=== PATIENT | male | born 1940 | race Caucasian/White ===

== ENCOUNTER 2018-10-18 09:56 | Observation (INO) | payer MEDICARE, BC, SELFPAY ==
[2018-10-18] VITALS (104 sets, daily range): BP systolic 98–164; BP diastolic 59–90; PULSE 62–101; RESP 11–31; TEMP 36.6–37; O2SAT 93–98
--- NOTE | 2018-10-18 10:40 | DI.CT_ITS ---
SYMPTOMS/DIAGNOSIS: DIZZINESS NONCONTRAST HEAD CT: There is mild to moderate atrophy. There are white matter changes consistent with small vessel disease. The ventricles are normal in size. No acute infarct, hemorrhage or mass is seen. There is no evidence of skull fracture. There is minimal sinus disease. IMPRESSION: No acute abnormality.
--- NOTE | 2018-10-18 10:40 | W.ED.GENAD ---
Discharge Plan Disposition Patient Disposition: [facility] INPATIENT Condition: Stable Discharge Details Chief Complaint: Dizzy/Sync Clinical Impression: Benign paroxysmal positional vertigo of right ear, Elevated troponin I level Admit Date/Time: 10/18/18 16:00 Admit Provider: Oskar Farfan Attending Provider: Oskar Farfan Primary Care Provider: Zoie Hyman ED Provider: Trent Mendosa [facility] Hospital Course: Chief Complaint: Vertigo HPI: Very pleasant 78 year old man with a prior history of HTN and dyslipidemia, being admitted from [facility] Emergency Department with findings of elevated BNP and troponin. Mr. Pope has a past Medical History significant for HTN, dyslipidemia, Depression, and mild Dementia. He is a full-time [place] resident, here locally to visit his daughter and grandchildren. The patient reported intermittent 'dizziness', initially attibuting this to his allergies since coming to [place] last month. He described this dizziness as sensation of the environment spinning around him - this does not appear to have a precipitating factor. He reportedly had an episode 2 days prior to admission while golfing, leading to an ED visit at [facility], where his work-up was essentially benign (troponin of 0.05). Since his discharge he reported 2 further episodes on the day prior to his presentation here, and 2 more occuring on the day of admission, the last of which was [place] and led to his presentation to the ED. According to the Emergency Department provider his Elton-Hallpike was positive, and the patient's symptoms improved after stone reposition maneuvering. However, routine labs returned with a troponin of 0.2, rechecked at 0.22, a BNP of 4715, and a DDimer of 784. Subsequent EKG was non-ischemic, CT head negative, and CT of the chest showed bibasilar infiltrates vs. atelectasis. He was referred for admission for further evaluation and treatment. Following admission the patient's symptoms of vertigo were reproduced by Physical Therapy while performing the Elton-Hallpike Maneuver, and he had the Sandeep Maneuver performed twice and now remains asymptomatic. MRI of the brain was negative for any acute pathology. His ECHO however returned with a mild decreased in ejection fraction and note of abnormal wall motion, and Nuclear stress was interpreted as positive for a small area of paritally reversible defect. The patient's troponin has remained minimally elevated but flat, again unchanged this morning at 0.2, and he remains completely asymptomatic. Mr. Pope has no complaints this morning. No other events reported. Hospital Course: (1) Elevated troponin: Minimally elevated troponin, asymptomatic, and without acute ECG changes. Troponin remained at 0.2 - 0.22 between the afternoon of 10/18 and morning of 10/20. As BNP was elevated an ECHO was obtained confirming a new diagnosis of CHF with wall motion abnormality (moderate hypokinesis of the apical myocardium), and Stress suggested small area of ischemia in the distribution of the RCA. Although doubt acute ACS, patient may have had silent MS in the past. Neither Mr. Pope nor his recall any time during which he may have had any symptoms of Chest pressure or discomfort, palpitations, heart burn, Upper Extremity/neck pain, nausea, vomiting, dyspnea, or diaphoresis. She reports that he has felt more 'fatigue' over the last 1-2 years, and attributes this to his underlying dementia. - For now continue aspirin, initiated low dose BB, and prn NTG (although asymptomatic). Pravastatin was changed to Atorvastatin. Already on BRAULIO-I as a home medication. Discussed case in detail with cardiology - given findings recommendations are for diagnostic catheterization, and given that patient is asymptomatic and this was likely not an acute event advised for elective outpatient procedure. Discussed with in detail, with plans for follow-up at [facility] urgent cardiology clinic, for evaluation of a diagnostic and potentially therapeutic Heart Catheterization. (2) Vertigo: Reported + Elton-Hallpike by ED evaluation, with improvement following stone repositioning maneuvers. - CT Head / MRI brain negative. - Remains asymptomatic. (3) Abnormal CT scan, chest: Evidence of small basilar infiltrates vs. atelectasis, with small pleural and pericardial effusions. - No evidence of cough or dyspnea, lack of leukocytosis, no fever, and Procalcitonin <0.1. Doubt infectious - hold off antibiotic therapy. (4) Hypertension: Continue combination BRAULIO-I/Thiazide, and initiated low dose BB. SBP mostly in the 120-140's, with HR 60-70's. (5) Dyslipidemia: Continue Atorvastatin and hold Pravastatin. (6) Alzheimer's dementia: Reported mild dementia - although patient is oriented X3 at time of admission. Continue Donepezil. (7) DVT prophylaxis: Was maintained on SC Lovenox. Discharge Instructions Instructions: Heart Failure (DC), Heart Failure (GEN), Benign Paroxysmal Positional Vertigo (DC), Benign Paroxysmal Positional Vertigo (GEN) Forms: Nursing Discharge Form Discharge Data Discharge Date/Time-TO BE ENTERED AT DEPARTURE: 10/18/18 17:23 Medical Decision Making Patient presenting to the emergency department for chief complaint of dizziness. Patient and significant other states that this is been intermittent since August when they came up here and noted that his allergies have increased since visiting daughter and that they typically live in [place]. Patient does state that this is similar nature to previous episodes but on Friday he did have an episode where he got dizzy and fell and was seen and evaluated at [facility] emergency department. Patient stated he had a negative work-up with mild troponin of 0.05. Patient denies any headache, chest pain, shortness of breath, focal neurological deficits. Physical exam shows normal cranial nerve exam, patient does have nystagmus with right lateral gaze and positive [place]-Hallpike to the right. Sandeep maneuver was performed immediately after [place]-Hallpike which did seem to help patient's symptoms. After performing this patient only had one episode of dizziness. Cardiac and respiratory exam are otherwise unremarkable. Given that patient had a syncopal event plan to check labs and EKG. Pending results patient was given Zofran, meclizine, and IV fluids. Initial EKG reviewed by attending physician and myself and shows rate of 80, sinus rhythm, no STEMI, otherwise nondiagnostic EKG. Review of labs show nondiagnostic CBC and CMP, elevated troponin of 0.2, nondiagnostic urine. Patient reassessed and states resolution of dizziness symptoms, no chest pain, no shortness of breath, is otherwise asymptomatic and feeling well. Review of [facility] records does show normal sinus rhythm EKG otherwise nondiagnostic with troponin of 0.05. Given this elevation of troponin I do feel that patient should stay for secondary troponin. Patient is agreeable to waiting 3 hours. Review of second troponin shows elevation of 0.22. Patient continues to remain asymptomatic and second EKG was done and reviewed with attending physician that shows a sinus rhythm, rate of 77, no STEMI, again nondiagnostic EKG. Plan to consult with [facility] cardiology but I feel that patient given he is asymptomatic is appropriate to stay at our facility if beds available or continued trending of troponin, monitoring of symptoms, and stress and echo when available. Pending speaking to [facility] d-dimer and BNP was ordered. Spoke with [facility] back end engineer who did not disagree with my plan to have patient admitted to our facility and to do further testing of stress and echo. Reviewed d-dimer which was slightly elevated for age adjustment and BNP which is also elevated. Given this I did talk to patient about CT imaging of the chest for rule out of PE which he is agreeable to. Patient again remains asymptomatic. Pending CT results I did consult with hospitalist Dr. Adolph collins for consideration of admission, further monitoring and further testing. After discussion of patient's case and presentation with him he agreed for admission and stated he would place admission order. Pending patient being admitted to hospital inpatient services review of CT imaging shows no PE, atelectasis versus bilateral pulmonary infiltrates, and small pericardial effusion. I do not feel that pericardial effusion needs any interventions at this time, I doubt infectious infiltrates given that patient has no cough, asymptomatic, afebrile. HPI General Mode of arrival: ambulatory. Date/Time Provider Initiated Documentation: 10/18/18 10:12. Limitations to Documentation: no limitations. Information obtained by: patient, family and RN notes reviewed. History of Present Illness 78 year old M presents to the emergency department with the chief complaint of Dizziness, described as moderate, Quality is described as other (Denies pain or discomfort), Patient started experiencing this month(s) (3) and it has been intermittent. No relieving factors improve symptom(s), No exacerbating factors reported . Patient notes no other symptoms.. Patient did receive the following treatments prior to arrival, none Related Data Home Medications Medication Instructions Recorded Confirmed aspirin [Aspir-81] 81 mg PO DAILY 10/18/18 10/18/18 citalopram 10 mg PO DAILY 10/18/18 10/18/18 donepezil 5 mg PO DAILY 10/18/18 10/18/18 lisinopril-hydrochlorothiazide 1 tab PO DAILY 10/18/18 10/18/18 loratadine 10 mg PO HS 10/18/18 10/18/18 multivitamin 1 cap PO DAILY 10/18/18 10/18/18 atorvastatin [Lipitor] 40 mg PO QPM #30 tab 10/20/18 metoprolol tartrate 25 mg PO BID #60 tab 10/20/18 nitroglycerin [Nitrostat] 0.4 mg SUBLINGUAL Q5 MIN PRN X3 10/20/18 PRN #9 tab Previous Rx's Medication Instructions Recorded atorvastatin [Lipitor] 40 mg PO QPM #30 tab 10/20/18 metoprolol tartrate 25 mg PO BID #60 tab 10/20/18 nitroglycerin [Nitrostat] 0.4 mg SUBLINGUAL Q5 MIN PRN X3 10/20/18 PRN #9 tab Allergies Allergy/AdvReac Type Severity Reaction Status Date / Time No Known Allergies Allergy Unverified 10/18/18 10:09 General Stated Complaint: Dizzy/Sync BRENNA: 3 Review of Systems Constitutional Denies fever(s) and Denies headache(s) Eyes Denies change in vision ENT Reports vertigo, Reports dizziness, Denies otalgia and Denies headache(s) Cardiovascular Denies chest pain, Denies syncope and Denies dyspnea Respiratory Denies dyspnea Gastrointestinal Denies nausea and Denies vomiting Neurologic Reports as per HPI, Reports vertigo, Reports dizziness, Denies syncope, Denies headache(s) and Denies sensory deficit PFS Medical History Alzheimer's dementia (Chronic) Depression (Chronic) Dyslipidemia (Acute) Hypertension (Chronic) Social History Smoking/Tobacco Use Status: Never Alcohol Intake: current Alcohol Intake frequency: holidays/special occasions only Drug use: Never Substance use type: does not use Do you feel safe at home: Yes Additional Social history: Patient is a . He is with children. No history of EtOH or Tobacco use. Exam Const General: cooperative, healthy appearing, no acute distress and well groomed Orientation: alert, awake and oriented x3 HENMT Head: normal to inspection Ears: hearing grossly normal bilaterally and TM's normal bilaterally Mouth: oral mucosae normal and moist mucous membranes Throat: posterior oropharynx normal Eyes Visual Snow: normal visual snow by confrontation Alignment and Position: alignment normal Periorbital: periorbital findings normal Eyelids: eyelids normal Conjunctivae: conjunctivae normal Pupils: PERRL EOM: EOM intact bilaterally and nystagmus (Horizontal with right lateral gaze) Neck Neck: normal visual inspection, full ROM, no lymphadenopathy and no meningeal signs Resp Effort & Inspection: normal respiratory effort and able to speak in complete sentences Auscultation: clear to auscultation bilaterally Cardio Rate: regular rate Rhythm: regular rhythm Heart Sounds: S1 normal and S2 normal Neuro General: alert, awake, oriented x3, gait normal, tone normal, moves all extremities, CN's II-XI intact bilaterally, not confused, [place] Hallpike (Positive to the right) and other (Hints exam showing nystagmus right lateral gaze, no signs of central CVA) Cranial Nerves: nystagmus (Horizontal with right lateral gaze) Cognition: normal cognition Speech: speech normal Motor: muscle tone normal throughout, strength 5/5 throughout, no pronator drift, no movement abnormalities noted and no fasciculations Sensory Exam: no sensory deficits noted Course Vital Signs Temperature 37.0 C 10/18/18 10:04 Pulse 85 10/18/18 10:04 Respiratory Rate 18 10/18/18 10:04 Blood Pressure 162/75 H 10/18/18 10:04 Pulse Oximetry 97 10/18/18 10:04 Temperature 37.0 C 10/18/18 10:04 Temperature Source Skin 10/18/18 10:04 Pulse 85 10/18/18 10:04 Respiratory Rate 18 10/18/18 10:04 Respiratory Effort Non-Labored 10/18/18 10:13 Blood Pressure 162/75 H 10/18/18 10:04 Blood Pressure Position Supine 10/18/18 10:04 Pulse Oximetry 97 10/18/18 10:04 Oxygen Delivery Method Room Air 10/18/18 10:04 Oxygen Flow Rate 0 10/18/18 10:04 Pain Level 0 10/18/18 10:04
[2018-10-18] MEDS: Meclizine 25 MG TAB PO (10:53)
[2018-10-18] MEDS: Normal Saline 1,000 ML 1000 ML IV (10:53)
[2018-10-18 11:15] LABS: Abs Immature Grans 0.02 k/cumm (0.0-0.09); Absolute Basophil Count 0.03 k/cumm (0.0-0.2); Absolute Eosinophil Count 0.27 k/cumm (0.0-0.7); Absolute Lymphocyte Count 1.17 k/cumm (1.2-3.4); Absolute Monocyte Count 0.82 k/cumm (0.11-0.7); Absolute Neutrophil Count 7.43 k/cumm (1.2-6.7); Basophils % 0.3; Eosinophils % 2.8; HCT 45.2 % (40.0-50.0); HGB 15.3 g/dL (13.5-17.5); Immature Grans % 0.2; Mean Corp. HGB Concentration 33.8 g/dL (32.0-36.0); Mean Corpuscular Hemoglobin 30.6 pg (27.0-33.0); Mean Corpuscular Volume 90.4 fL (80-95); Mean Platelet Volume 11.6 fL (8.0-11.0); Monocytes % 8.4; Neutrophils % 76.3; Platelet Count 175 x1000/uL (130-400); RBC Distribution Width 13.2 % (11.8-14.1); White Blood Cell Count 9.74 k/cumm (4.4-10.8)
[2018-10-18 11:16] LABS: Bilirubin Negative (Negative); Blood Negative (Negative); Clarity Clear (Clear); Glucose Negative (Negative); Ketones Negative (Negative); Leukocyte Esterase Negative (Negative); Nitrite Negative (Negative); Specific Gravity 1.015 (1.005-1.025); Urobilinogen 0.2 EU/dL (Up TO 0.2); pH 7.5 (5-8)
[2018-10-18 11:40] LABS: ALT 25 U/L (12-78); AST 21 U/L (15-37); Albumin 3.1 g/dL (3.4-5.0); Alkaline Phosphatase 76 U/L (46-116); Anion Gap 10.3 mmol/L (3-11); BUN 13 mg/dL (7-18); Bilirubin, Total 0.6 mg/dL (0.2-1.0); CO2 26.7 mmol/L (21.0-32.0); CREATININE 0.96 mg/dL (0.70-1.30); Calcium 8.8 mg/dL (8.5-10.1); Chloride 105 mmol/L (98-107); Glucose 98 mg/dL (70-100); Potassium 3.9 mmol/L (3.5-5.1); Sodium 142 mmol/L (136-145); Total Protein 6.7 g/dL (6.4-8.2)
--- NOTE | 2018-10-18 11:53 | DI.VRAD_ITS ---
EXAM: CT Head Without Contrast EXAM DATE/TIME: 10/18/2018 10:41 AM CLINICAL HISTORY: 78 years old, male; Dizziness TECHNIQUE: Imaging protocol: Computed tomography images of the head without contrast. Coronal and sagittal reformatted images were created and reviewed. Radiation optimization: All CT scans at this facility use at least one of these dose optimization techniques: automated exposure control; mA and/or kV adjustment per patient size (includes targeted exams where dose is matched to clinical indication); or iterative reconstruction. COMPARISON: No relevant prior studies available. FINDINGS: Brain: Mild small vessel ischemic white matter changes of aging. No evidence for acute infarct or stroke. Ventricles: Unremarkable. No ventriculomegaly. Bones/joints: Unremarkable. No acute fracture. Sinuses: Visualized sinuses are unremarkable. No fluid levels. Mastoid air cells: Visualized mastoid air cells are well aerated. No mastoid effusion. Soft tissues: Unremarkable. IMPRESSION: 1. Small vessel ischemic white matter changes of aging. 2. No evidence for acute intracranial abnormality. Dictated and Authenticated by: Diandra Arteaga MD. Ordering:AME Newman MD
[2018-10-18 14:21] LABS: Troponin I 0.22 ng/mL (0.00-0.06)
[2018-10-18 15:04] LABS: NT-proBNP 4715 pg/mL
[2018-10-18 15:14] LABS: D-Dimer 784 ng/mlFEU (<500)
[2018-10-18] MEDS: Normal Saline Flush 10 ML SYR IVP (15:40)
[2018-10-18] MEDS: Omnipaque 350 MG/ML 100 ML BTL IJ (15:40)
--- NOTE | 2018-10-18 15:40 | DI.CT_ITS ---
SYMPTOMS/DIAGNOSIS: ELEVATED D-DIMER CHEST CT FOR PULMONARY EMBOLISM: CT angiography was performed with multi slice acquisition and multi planar and 3D reconstruction. There is no evidence of pulmonary emboli or aortic dissection. There is bibasilar atelectasis versus infiltrates. There are tiny bilateral pleural effusions and a small pericardial effusion. There are mildly enlarged hilar and mediastinal lymph nodes. IMPRESSION: No evidence of pulmonary emboli. Question of small basilar infiltrates versus atelectasis. Small pleural and pericardial effusions.
--- NOTE | 2018-10-18 15:57 | DI.VRAD_ITS ---
EXAM: CT Angiography Chest With Contrast EXAM DATE/TIME: 10/18/2018 3:20 PM CLINICAL HISTORY: 78 years old, male; Other: Elevated d-dimer; Patient HX: No chest pain or SOB, no HX of clots. TECHNIQUE: Imaging protocol: Axial computed tomographic angiography images of the chest with intravenous contrast using CT angiography protocol. Coronal and sagittal reformatted images were created and reviewed. 3D rendering: MIP reconstructed images were created and reviewed. Radiation optimization: All CT scans at this facility use at least one of these dose optimization techniques: automated exposure control; mA and/or kV adjustment per patient size (includes targeted exams where dose is matched to clinical indication); or iterative reconstruction. Contrast material: OMNIPAQUE 350;Contrast volume: 75 ml;Contrast route: IV; COMPARISON: No relevant prior studies available. FINDINGS: Pulmonary arteries: No evidence for pulmonary embolus. Aorta: Atherosclerotic disease. Lungs: Bibasilar infiltrates versus atelectasis. Pleural space: Biapical pleural thickening. Bibasilar pleural thickening. Tiny bilateral pleural effusions. Heart: Tiny pericardial effusion. Coronary artery disease. Mediastinum: Hiatal hernia. Liver: Hypodensity in the anterior liver may represent a small cyst. Spleen: Calcified granulomas in the spleen. Lymph nodes: Mediastinal and hilar lymph nodes. Calcified mediastinal and right hilar lymph nodes. Bones/joints: Multilevel degenerative changes spine. Soft tissues: Unremarkable. IMPRESSION: 1. No evidence for pulmonary embolus. 2. Bibasilar infiltrates versus atelectasis. Tiny bilateral pleural effusions. 3. Pericardial effusion. Dictated and Authenticated by: Diandra Arteaga MD. Ordering:AME Newman MD
--- NOTE | 2018-10-18 17:40 | HPE_ITS ---
Date of service: 10/18/18 Time of Service: 17:40 Assessment and Plan (1) Elevated troponin: Current visit: Yes Status: Acute Unsure of etiology, but appears minimally and equivocally elevated, and appears asymptomatic. - EKG non-ischemic. - Elevated BNP - Check ECHO. - Plan on Nuclear Stress tomorrow if able. - Monitor on telemetry, and rule out with serial cardiac biomarkers. - Given elevated DDimer and recent lengthy travel CT of the chest obtained and ruled out PE. - For now continue aspirin, initiate high potency statin, low dose BB, and prn NTG (although asymptomatic). Hold off on anticoagulation unless troponins begin to increase. (2) Vertigo: Current visit: Yes Status: Acute Reported + Clio-Hallpike by ED evaluation, with improvement following stone repositioning maneuvers. Patient does report, however, continued vertigo earlier when standing and attempting to urinate. - Consult PT for reevaluation. - CT Head negative, but cannot definitively rule out Posterior Circulation CVA - check MRI/MRA brain. - Ensure ambulation with assistance while hospitalized. (3) Abnormal CT scan, chest: Current visit: Yes Status: Acute (4) Hypertension: Current visit: Yes Status: Chronic Continue combination BRAULIO-I/Thiazide, and initiated low dose BB. (5) Dyslipidemia: Current visit: Yes Status: Acute Start Atorvastatin and hold Pravastatin. (6) Alzheimer's dementia: Current visit: Yes Status: Chronic Reported mild dementia - although patient is oriented X3 at time of admission. Continue Donepezil. (7) DVT prophylaxis: Current visit: Yes Status: Acute SC Lovenox. History of Present Illness Chief Complaint: Vertigo, Elevated Troponin Narrative: Very pleasant 78 year old man with a prior history of HTN and dyslipidemia, being admitted from [facility] Emergency Department with findings of elevated BNP and troponin. Mr. Pope has a past Medical History significant for HTN, dyslipidemia, Depression, and mild Dementia. He is a full-time [place] resident, here locally to visit his daughter and grandchildren. The patient reports intermittent 'dizziness', initially attibuting this to his allergies since coming to [place] last month. He describes this dizziness as sensation of the environment spinning around him - this does not appear to have a positional component or any precipitating factor. He reportedly had an episode 2 days ago while golfing, leading to an ED visit at [facility], where his only abnormality was a troponin of 0.05. Since his discharge he reported 2 further episodes yesterday, and 2 more occuring today, the last of which was at [employer] and led to his presentation to the ED. According to ED notes his Elton-Hallpike was positive, and the patient's symptoms improved after stone reposition maneuvering. However, routine labs returned with a troponin of 0.2, rechecked at 0.22, a BNP of 4715, and a DDimer of 784. Subsequent EKG was non-ischemic, CT head negative, and CT of the chest showed bibasilar infiltrates vs. atelectasis. He was referred for admission for further evaluation and treatment. Review of Systems Review of Systems All systems reviewed & are unremarkable except as noted in HPI and below [facility] Medical History (Updated 10/18/18 @ 17:53 by Oskar Farfan MD) Alzheimer's dementia (Chronic) Depression (Chronic) Dyslipidemia (Acute) Hypertension (Chronic) Social History (Updated 10/18/18 @ 17:54 by Oskar Farfan MD) Smoking/Tobacco Use Status: Never Alcohol Intake: current Alcohol Intake frequency: holidays/special occasions only Drug use: Never Substance use type: does not use Do you feel safe at home: Yes Additional Social history: Patient is a . He is with children. No history of EtOH or Tobacco use. Meds Home Medications Medication Instructions Recorded Confirmed Type aspirin [Aspir-81] 81 mg PO DAILY 10/18/18 10/18/18 History citalopram 5 mg PO DAILY 10/18/18 10/18/18 History donepezil 5 mg 10/18/18 History lisinopril-hydrochlorothiazide 1 tab PO DAILY 10/18/18 10/18/18 History pravastatin 20 mg PO DAILY 10/18/18 10/18/18 History Allergies Allergy/AdvReac Type Severity Reaction Status Date / Time No Known Allergies Allergy Unverified 10/18/18 10:09 Exam Narrative Exam Narrative: General: Patient appears comfortable, AAOX3 at time of exam, NAD Neck: Supple CV: Regular, nontachycardic, S1S2, No rubs, murmurs, or gallops. Pulmonary: Clear to auscultation bilaterally, no crackles, wheezing, or rhonchi Abdomen: + Bowel Sounds, soft, nontender, nondistended Vascular: No lower extremity edema Psych: Normal mood and affect. Results Imaging CT scan - chest: report reviewed and image reviewed Additional studies: Exam(s) EXAM: CT Head Without Contrast EXAM DATE/TIME: 10/18/2018 10:41 AM CLINICAL HISTORY: 78 years old, male; Dizziness TECHNIQUE: Imaging protocol: Computed tomography images of the head without contrast. Coronal and sagittal reformatted images were created and reviewed. Radiation optimization: All CT scans at this facility use at least one of these dose optimization techniques: automated exposure control; mA and/or kV adjustment per patient size (includes targeted exams where dose is matched to clinical indication); or iterative reconstruction. COMPARISON: No relevant prior studies available. FINDINGS: Brain: Mild small vessel ischemic white matter changes of aging. No evidence for acute infarct or stroke. Ventricles: Unremarkable. No ventriculomegaly. Bones/joints: Unremarkable. No acute fracture. Sinuses: Visualized sinuses are unremarkable. No fluid levels. Mastoid air cells: Visualized mastoid air cells are well aerated. No mastoid effusion. Soft tissues: Unremarkable. IMPRESSION: 1. Small vessel ischemic white matter changes of aging. 2. No evidence for acute intracranial abnormality. Exam(s) EXAM: CT Angiography Chest With Contrast EXAM DATE/TIME: 10/18/2018 3:20 PM CLINICAL HISTORY: 78 years old, male; Other: Elevated d-dimer; Patient HX: No chest pain or SOB, no HX of clots. TECHNIQUE: Imaging protocol: Axial computed tomographic angiography images of the chest with intravenous contrast using CT angiography protocol. Coronal and sagittal reformatted images were created and reviewed. 3D rendering: MIP reconstructed images were created and reviewed. Radiation optimization: All CT scans at this facility use at least one of these dose optimization techniques: automated exposure control; mA and/or kV adjustment per patient size (includes targeted exams where dose is matched to clinical indication); or iterative reconstruction. Contrast material: OMNIPAQUE 350;Contrast volume: 75 ml;Contrast route: IV; COMPARISON: No relevant prior studies available. FINDINGS: Pulmonary arteries: No evidence for pulmonary embolus. Aorta: Atherosclerotic disease. Lungs: Bibasilar infiltrates versus atelectasis. Pleural space: Biapical pleural thickening. Bibasilar pleural thickening. Tiny bilateral pleural effusions. Heart: Tiny pericardial effusion. Coronary artery disease. Mediastinum: Hiatal hernia. Liver: Hypodensity in the anterior liver may represent a small cyst. Spleen: Calcified granulomas in the spleen. Lymph nodes: Mediastinal and hilar lymph nodes. Calcified mediastinal and right hilar lymph nodes. Bones/joints: Multilevel degenerative changes spine. Soft tissues: Unremarkable. IMPRESSION: 1. No evidence for pulmonary embolus. 2. Bibasilar infiltrates versus atelectasis. Tiny bilateral pleural effusions. 3. Pericardial effusion. Labs : 10/18/18 10:55 10/18/18 10:55 Laboratory Results - last 24 hr 10/18/18 10/18/18 10/18/18 10:55 10:55 10:55 WBC 9.74 RBC 5.00 Hgb 15.3 Hct 45.2 MCV 90.4 MCH 30.6 MCHC 33.8 RDW 13.2 Plt Count 175 MPV 11.6 H Immature Gran % 0.2 Neutrophils % 76.3 Lymphocytes % 12.0 Monocytes % 8.4 Eosinophils % 2.8 Basophils % 0.3 Absolute Neutrophils 7.43 H Absolute Lymphocytes 1.17 L Absolute Monocytes 0.82 H Absolute Eosinophils 0.27 Absolute Basophils 0.03 D-Dimer Sodium 142 Potassium 3.9 Chloride 105 Carbon Dioxide 26.7 Anion Gap 10.3 BUN 13 Creatinine 0.96 Estimated GFR/1.73 m2 >= 60.00 Glucose 98 Calcium 8.8 Magnesium 2.0 Total Bilirubin 0.6 AST 21 ALT 25 Alkaline Phosphatase 76 Troponin I 0.20 H* NT-Pro-B Natriuret Pep Total Protein 6.7 Albumin 3.1 L Urine Color Yellow Urine Clarity Clear Urine pH 7.5 Ur Specific [place] 1.015 Urine Protein Negative Urine Ketones Negative Urine Blood Negative Urine Nitrite Negative Urine Bilirubin Negative Urine Urobilinogen 0.2 Ur Leukocyte Esterase Negative Urine Glucose Negative 10/18/18 10/18/18 10/18/18 10:55 10:55 13:59 WBC RBC Hgb Hct MCV MCH MCHC RDW Plt Count MPV Immature Gran % Neutrophils % Lymphocytes % Monocytes % Eosinophils % Basophils % Absolute Neutrophils Absolute Lymphocytes Absolute Monocytes Absolute Eosinophils Absolute Basophils D-Dimer 784 H Sodium Potassium Chloride Carbon Dioxide Anion Gap BUN Creatinine Estimated GFR/1.73 m2 Glucose Calcium Magnesium Total Bilirubin AST ALT Alkaline Phosphatase Troponin I 0.22 H* NT-Pro-B Natriuret Pep 4715 H Total Protein Albumin Urine Color Urine Clarity Urine pH Ur Specific [place] Urine Protein Urine Ketones Urine Blood Urine Nitrite Urine Bilirubin Urine Urobilinogen Ur Leukocyte Esterase Urine Glucose Last Vital Signs Temp 37.0 C 10/18/18 10:04 Pulse 71 10/18/18 17:01 Resp 16 10/18/18 17:01 BP 147/68 H 10/18/18 17:01 Pulse Ox 95 10/18/18 17:01
[2018-10-18] MEDS: Potassium Chloride 10 MEQ TABCR PO (18:25)
[2018-10-18 19:00] LABS: Troponin I 0.21 ng/mL (0.00-0.06)
[2018-10-18] MEDS: Atorvastatin 40 MG TAB PO (20:29)
[2018-10-18] MEDS: Metoprolol 25 MG TAB PO (20:29)
[2018-10-19] VITALS (52 sets, daily range): BP systolic 128–177; BP diastolic 55–90; PULSE 59–110; RESP 9–22; TEMP 36.5–37.3; O2SAT 94–99
[2018-10-19 07:15] LABS: Abs Immature Grans 0.02 k/cumm (0.0-0.09); Absolute Basophil Count 0.03 k/cumm (0.0-0.2); Absolute Eosinophil Count 0.31 k/cumm (0.0-0.7); Absolute Lymphocyte Count 1.08 k/cumm (1.2-3.4); Absolute Monocyte Count 0.73 k/cumm (0.11-0.7); Absolute Neutrophil Count 5.81 k/cumm (1.2-6.7); Basophils % 0.4; Eosinophils % 3.9; HCT 42.9 % (40.0-50.0); HGB 14.3 g/dL (13.5-17.5); Immature Grans % 0.3; Lymphocytes % 13.5; Mean Corp. HGB Concentration 33.3 g/dL (32.0-36.0); Mean Corpuscular Hemoglobin 30.6 pg (27.0-33.0); Mean Corpuscular Volume 91.9 fL (80-95); Mean Platelet Volume 11.7 fL (8.0-11.0); Monocytes % 9.1; Neutrophils % 72.8; Platelet Count 155 x1000/uL (130-400); RBC 4.67 m/cumm (4.50-6.00); RBC Distribution Width 13.4 % (11.8-14.1); White Blood Cell Count 7.98 k/cumm (4.4-10.8)
[2018-10-19 07:35] LABS: BUN 13 mg/dL (7-18); CREATININE 1.01 mg/dL (0.70-1.30); Chloride 106 mmol/L (98-107); Glucose 121 mg/dL (70-100); Magnesium 2.1 mg/dL (1.8-2.4); Potassium 3.8 mmol/L (3.5-5.1); Sodium 142 mmol/L (136-145)
[2018-10-19 07:39] LABS: Troponin I 0.21 ng/mL (0.00-0.06)
--- NOTE | 2018-10-19 07:40 | MERGE_ITS ---
*[facility]* *[facility]* [address] [place] [address] Date of study: 10/19/2018 Transthoracic Echocardiography M-mode, complete 2D, complete spectral Doppler, and color Doppler *STUDY CONCLUSIONS* Summary: 1. Left ventricle: The cavity size was normal. The estimated ejection fraction was 45%. Diffuse mild hypokinesis. Moderate hypokinesis of the apical myocardium. Findings consistent with diastolic dysfunction. Doppler parameters are consistent with high ventricular filling pressure. 2. Aortic valve: There was moderate regurgitation. 3. Mitral valve: There was mild regurgitation. 4. Left atrium: The atrium was mildly dilated. 5. Right ventricle: The cavity size was normal. Wall thickness was normal. Systolic function was normal. 6. Right atrium: The atrium was mildly dilated. 7. Atrial septum: No defect or patent foramen ovale was identified. 8. Pulmonary arteries: Pulmonary systolic pressure was in the range of 30mm Hg to 40mm Hg. 9. Inferior vena cava: The vessel was patent and normal in size. The respirophasic diameter changes were in the normal range (greater than or equal to 50%), consistent with normal central venous pressure. *PATIENT PRESENTATION* Height: 182.9cm (72in ) S/D Pressure: 128 / 55 Weight: 83.9kg (184.6lb ) BSA: 2.07m^2 Test start time: 07:50 AM. Test stop time: 08:45 AM. PERFORMING Unknown CONSULTING Oskar Farfan ORDERING Oskar Farfan REFERRING Oskar Farfan PERFORMING [facility] LEARNING DISABILITIES SPECIALIST RT Curt (R)(CT), [facility] *PROCEDURE DATA* Procedure information: The patient was identified by two identifiers. This study was interpreted by [facility]. Pertinent images and digital data are archived for permanent storage and are available for subsequent review. No prior study was available for comparison. Study status: Routine. Transthoracic echocardiography. M-mode, complete 2D, complete spectral Doppler, and color Doppler. A Transthoracic Echocardiogram was performed. Scanning was performed from the parasternal, apical, subcostal, and suprasternal notch acoustic windows. Images were obtained using an [id number] cardiac ultrasound machine. Image quality was good. Study completion: The patient tolerated the procedure well. History: PMH: Elevated troponin BNP. *CARDIAC ANATOMY* Left ventricle: The cavity size was normal. The estimated ejection fraction was 45%. Diffuse mild hypokinesis. Regional wall motion abnormalities: Moderate hypokinesis of the apical myocardium. The tissue Doppler parameters were abnormal. Findings consistent with diastolic dysfunction. Doppler parameters are consistent with high ventricular filling pressure. Aortic valve: Probably trileaflet; mildly thickened, mildly calcified leaflets. Doppler: There was no stenosis. There was moderate regurgitation. VTI ratio of LVOT to aortic valve: 0.6. Valve area (VTI): 2.2cm^2. Indexed valve area (VTI): 1cm^2/m^2. Peak velocity ratio of LVOT to aortic valve: 0.66. Valve area (Vmax): 2.4cm^2. Indexed valve area (Vmax): 1.1cm^2/m^2. Mean velocity ratio of LVOT to aortic valve: 0.67. Valve area (Vmean): 2.4cm^2. Indexed valve area (Vmean): 1.2cm^2/m^2. Mean gradient (S): 4.5mm Hg. Peak gradient (S): 7.3mm Hg. Aorta: Aortic root: The aortic root was normal in size. Ascending aorta: The ascending aorta was moderately dilated. Mitral valve: Doppler: There was no evidence for stenosis. There was mild regurgitation. Valve area by pressure half-time: 5.3cm^2. Indexed valve area by pressure half-time: 2.5cm^2/m^2. Peak gradient (D): 4.6mm Hg. Left atrium: The atrium was mildly dilated. Atrial septum: No defect or patent foramen ovale was identified. Right ventricle: The cavity size was normal. Wall thickness was normal. Systolic function was normal. Pulmonic valve: Doppler: There was no evidence for stenosis. There was mild regurgitation. Peak gradient (S): 8.6mm Hg. Tricuspid valve: Doppler: There was mild regurgitation. Pulmonary artery: Poorly visualized. Pulmonary systolic pressure was in the range of 30mm Hg to 40mm Hg. Right atrium: The atrium was mildly dilated. Pericardium: There was no significant pericardial effusion. Systemic veins: Inferior vena cava: Well visualized. The vessel was patent and normal in size. The respirophasic diameter changes were in the normal range (greater than or equal to 50%), consistent with normal central venous pressure. Baseline ECG: Normal sinus rhythm. Measurements Left ventricle Value Reference LV ID, ED, PLAX (H) 6.2 cm 3.5 - 6.0 LV ID, ES, PLAX (H) 4.9 cm 2.1 - 4.0 LV PW thickness, ED, PLAX 1.1 cm LV end-diastolic volume, 1-p A2C 139 ml LV ejection fraction, 1-p A2C 54 % LV end-diastolic volume, 1-p A4C 138 ml LV ejection fraction, 1-p A4C 42 % LV e', lateral 0.054 m/sec LV E/e', lateral 20 LV e', medial 0.051 m/sec LV E/e', medial 21 LV e', average 0.052 m/sec LV E/e', average 21 Ventricular septum Value Reference IVS thickness, ED, PLAX 1.0 cm LVOT Value Reference LVOT ID, A-P 2.1 cm LVOT area 3.6 cm^2 LVOT peak velocity, S 0.89 m/sec LVOT mean velocity, S 0.69 m/sec LVOT VTI, S 19.3 cm LVOT peak gradient, S 3.2 mm Hg LVOT mean gradient, S 2 mm Hg Stroke volume (SV), LVOT DP 69 ml Stroke index (SV/bsa), LVOT DP 33 ml/m^2 Aortic valve Value Reference Aortic valve peak velocity, S 1.4 m/sec Aortic valve mean velocity, S 1 m/sec Aortic valve VTI, S 32.0 cm Aortic mean gradient, S 4.5 mm Hg Aortic peak gradient, S 7.3 mm Hg VTI ratio, LVOT/AV 0.6 Aortic valve area, VTI 2.2 cm^2 Velocity ratio, peak, LVOT/AV 0.66 Aortic valve area, peak velocity 2.4 cm^2 Velocity ratio, mean, LVOT/AV 0.67 Aortic valve area, mean velocity 2.4 cm^2 Aortic valve area/bsa, mean velocity 1.2 cm^2/m^2 Aorta Value Reference Aortic root ID, ED 3.7 cm Ascending aorta ID, A-P, S 4.0 cm Left atrium Value Reference LA ID, A-P, ES 4.5 cm LA ID/bsa, A-P 2.2 cm/m^2 <=2.2 LA volume/bsa, ES, 1-p A4C 42 ml/m^2 LA volume, ES, 2-p 77 ml LA volume/bsa, ES, 2-p 37 ml/m^2 LA/aortic root ratio 1.22 Mitral valve Value Reference Mitral E-wave peak velocity 1.08 m/sec Mitral A-wave peak velocity 0.28 m/sec Mitral deceleration time (L) 144 ms 150 - 230 Mitral pressure half-time 42 ms Mitral peak gradient, D 4.6 mm Hg Mitral E/A ratio, peak 3.83 Mitral valve area, PHT, DP 5.3 cm^2 Pulmonary veins Value Reference Pulmonary vein peak velocity, S 0.55 m/sec Pulmonary vein peak velocity, D 0.85 m/sec Pulmonary vein velocity ratio, peak, 0.65 S/D Pulmonary vein A-wave reversal peak 0.49 m/sec velocity Pulmonary vein A-wave reversal 157 ms duration Tricuspid valve Value Reference Tricuspid regurg peak velocity 2.8 m/sec Tricuspid peak RV-RA gradient 31.8 mm Hg Right atrium Value Reference RA area, ES, A4C (H) 19.7 cm^2 8.3 - 19.5 Pulmonic valve Value Reference Pulmonic peak gradient, S 8.6 mm Hg Pulmonic regurg velocity, ED 1.47 m/sec Pulmonic regurg gradient, ED 9 mm Hg Legend: (L) and (H) bogdan values outside specified reference range. I have personally reviewed the images and have reviewed and edited the reported findings. Electronically signed by To Villalta MD 10/19/2018 11:56
[2018-10-19 07:47] LABS: Procalcitonin < 0.1 ng/mL
--- NOTE | 2018-10-19 09:12 | PDOC.CMIN ---
- If Service Date Differs Date of service: 10/19/18 Time of Service: 09:12 Care Management Initial Assess REASON FOR HOSPITALIZATION:: Elevated troponin PAST MEDICAL HISTORY/PAST SURGICAL HISTORY:: Medical History: Alzheimer's dementia (Chronic). Depression (Chronic). Dyslipidemia (Acute). Hypertension (Chronic) PREVIOUS FUNCTIONAL STATUS/SOCIAL/FAMILY SUPPORTS:: Federico lives with his Sharmaine in a senior living community in [place], [place]. They summer in [place] in a campground in [place], [place]. Mohinder and Sharmaine have 2 adult daughters and 7 grandchildren. 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 He is independent with all care and ADLs. He has mild dementia but manages well with the help of his and family. CURRENT FUNCTIONAL STATUS:: Federico was sitting up on the side of the bed when CM came to visit.He was pleasant and receptive to conversing and answering questions. Sharmaine was with him and together they shared information about their home in [place] and experiences here in [place]. Dr. Farfan also visited during this time and explained the vertigo that Federico has been experiencing. Has patient been provided with information about the portal?: No Did the patient sign up for the portal?: No CODE STATUS:: Full Code INSURANCE COVERAGE / FINANCIAL ISSUES:: Medicare. BC BS CURRENT HOME/COMMUNITY SERVICES/EQUIPMENT:: none currently PRIMARY CARE PHYSICIAN:: Zoie Hyman POTENTIAL DISCHARGE NEEDS:: Follow up with cardiology, PCP and discharge plan of care PATIENT/FAMILY EDUCATION NEEDS:: Discharge plan, limitations, follow up plan, Ask Me Three. ANTICIPATED BARRIERS TO DISCHARGE:: none identified TRANSPORTATION:: via private vehicle with family when ready PLAN:: Federico is undergoing testing to determne the significance of his elevated troponins. He will have an ECHO, stress test and MRI today. He will be discharged with no services when ready. CM will continue to support patient, family and discharge planning needs.
[2018-10-19] MEDS: hydroCHLOROthiazide 12.5 MG TAB PO (09:20)
[2018-10-19] MEDS: Potassium Chloride 20 MEQ TABCR PO (09:20)
[2018-10-19] MEDS: Lisinopril 10 MG TAB PO (09:20)
[2018-10-19] MEDS: Citalopram 10 MG TAB 5 MG PO (09:21)
[2018-10-19] MEDS: Enoxaparin 40 MG/0.4 ML SYR SC (09:21)
[2018-10-19] MEDS: Donepezil 5 MG TAB PO (09:21)
[2018-10-19] MEDS: Metoprolol 25 MG TAB PO ×2 (09:21→19:44)
[2018-10-19] MEDS: Aspirin E.C. 81 MG TABEC PO (09:21)
--- NOTE | 2018-10-19 09:30 | PHARADMIT ---
Admission Pharmacy Clinical Review elevated troponin Code Status Full Code Current Weight 83.2 kg Renally Cleared and Narrow Therapeutic Index Meds Crcl ~68.0 mL/min current meds okay QTc Value / Action Taken QTc 480 has donepezil and citalopram ordered BP Control, Fever BP 140/67 afebrile Electrolytes reviewed within normal limits DVT Prophylaxis enoxaparin Opiate Usage / Scheduled Bowel Regimen Ordered no/prn Plt/SCr for Heparin / Enoxaparin plt 155 SCr 1.01 INR for Warfarin n/a H/H stable, WBC/Bands h/h 14.3/42.9 wbc 7.98 Antibiotic appropriateness n/a Cultures and Sensitivities n/a Surgical ABX d/c within 24 hr n/a DM control / Insulin Dosing BG 121 none Heart Failure (Check EF%) (BRAULIO's, B-Block, Diuretics) HCTZ, lisinopril, metoprolol IV to PO Switch n/a Home Meds Reviewed yes Home Meds Not Ordered loratadine, multivitamin, pravastatin (has atorvastatin ordered) Comments trops- 0.20,0.22,0.21,0.21 stuck/not decreasing MRI brain, CT, NPI, ECHO ordered for today
--- NOTE | 2018-10-19 10:30 | MERGEMPI_ITS ---
*[facility]* *[facility]* [address] [place] [address] Myocardial Perfusion Imaging - SPECT Regadenoson Date of study: 10/19/2018 (Report amended ) *PATIENT PRESENTATION* Height: 182.9cm (72in) Blood Pressure: Weight: 84.1kg (185lb) BSA: 2.07m^2 Referring physician: Jneny Hagen Ordering physician: Oskar Farfan Impressions: - Abnormal study after maximal exercise. - Abnormal contraction consistent with cardiomyopathy. Summary: 1. Myocardial perfusion imaging: There is no transient ischemic dilation. There is a small sized, mildly intense, partially reversible defect involving the basal inferior wall(s). This suggests small ischemia in the distribution of the right coronary artery. Overall ischemia: small. 2. The calculated left ventricular ejection fraction after stress: 39%. Diffuse left ventricular regional motion abnormalities. There is moderate hypokinesis involving the septal wall(s) of the left ventricle. 3. Stress ECG conclusions: Abraham treadmill score: 9. This score predicts a low risk of cardiac events. Indication: I50.9. History: REASON FOR VISIT: ELEVATED TROPONIN AND BNP. Risk factors: Family history of coronary artery disease. Hypertension. Dyslipidemia. ALLERGIES: NO KNOWN ALLERGIES. MEDICATIONS: ASPIRIN 81 MG DAILY. CITALOPRAM 5 MG DAILY. DONEPEZIL 5 MG DAILY. LISINOPRIL-HYDROCHLOROTHIAZIDE 1 TAB DAILY. PRAVASTATIN 20 MG DAILY. Imaging Technique: Protocol: Regadenoson. Acquisition: Gated SPECT; 1 day - rest/stress. The patient was imaged in the supine position. Attenuation correction used. Isotope administration: - Rest. Tc[99m]-sestamibi. Dose: 10.6mCi. Injection time: 10:15 AM. Injection to stress time: 00:45. - Stress. Tc[99m]-sestamibi. Dose: 31mCi. Injection time: 12:04 PM. 1-2 min before end of exercise Baseline ECG: SINUS RHYTHM. HR 68 BPM. LEFT VENTRICAL HYPERTROPHY. Stress protocol: +--------+--+ + + !Stage !HR!BP (mmHg) !Comments ! +--------+--+ + + !Baseline!68!140/70 (93) ! ! +--------+--+ + + !1 min !72!160/78 (105)!Inject Regadenoson.! +--------+--+ + + !3 min !98!158/60 (93) ! ! +--------+--+ + + !6 min !89!158/68 (98) ! ! +--------+--+ + + !9 min !81!150/70 (97) ! ! +--------+--+ + + * Stress results: The rate-pressure product for the peak heart rate and blood pressure was 73306rv Hg/min. Stress ECG: STRESS TEST ENDED IN 9 MINUTES & 8 SECONDS. PT EXPERIENCED SIGNIFICANT DIZZYNESS AND MILD NAUSEA AFTER LEXISCAN INJECTION. DIZZYNESS SUBSIDED AFTER 8 MINUTES POST LEXISCAN INJECTION. NORMAL HEART RATE AND BLOOD PRESSURE RESPONSE TO LEXISCAN INJECTION. RARE PVC NO ANGINA NO SIGNIFICANT ST SEGMENT CHANGES. Abraham treadmill score: 9. This score predicts a low risk of cardiac events. Myocardial perfusion: Imaging information: gated. There is no transient ischemic dilation. There is a small sized, mildly intense, partially reversible defect involving the basal inferior wall(s). This suggests small ischemia in the distribution of the right coronary artery. Overall ischemia: small. Ventricular Function (Wall Motion): The calculated left ventricular ejection fraction after stress: 39%. Diffuse left ventricular regional motion abnormalities. There is moderate hypokinesis involving the septal wall(s) of the left ventricle. Study data: To Villalta MD supervised and was readily available during the procedure. This study was interpreted by [facility]. Study status: Routine. Consent: The risks, benefits, and alternatives to the procedure were explained to the patient and informed consent was obtained. Procedure: Initial setup. A baseline ECG was recorded. Surface ECG leads and manual cuff blood pressure measurements were monitored. Heart sounds: Normal. Lung sounds: Normal. Regadenoson stress test. Stress testing was performed, with regadenoson by intravenous bolus, for a total dose of 0.4mgover 10.00sec, followed by a 5ml saline flush. The infusion was terminated due to per protocol. The patient was unable to exercise due to other circumstances. The patient was unable to exercise due to VERTIGO. Study completion: All catheters inserted during the procedure were removed. The patient tolerated the procedure well and was discharged from the lab. Discharge: The patient left the laboratory in stable condition. Birthdate: Patient birthdate: 1940. Sex: Gender: male. Study date: Study date: 10/19/2018. Study time: 00:01 AM. Electronically signed by To Villalta MD 10/19/2018 17:15
--- NOTE | 2018-10-19 10:56 | PT.INIE ---
Date of service: 10/19/18 Time of Service: 09:24 PT Notes Inpatient Physical Therapy Evaluation Date: 10/19/2018 Referring Doctor: Oskar Farfan MD PT Orders: PT CONSULT: Vertigo, reported +Mills-hallpike. Please evaluate and perform Sandeep maneuver if deemed appropriate Precautions: Fall. Standard. Dizziness. Patient Profile/Admitting Diagnosis: Patient is a 78-year-old male with past medical history significant for Alzheimer's Disease, dyslipidemia, and hypertension who presented [facility] ED on 10/16/2018 due to a fall resulting from a dizziness episode. On 10/18/2018, patient complained of the same symptom and was sent to [facility] ED. Significant other reported that patient have been reporting dizziness since two months ago and that patient has had two falls (including this last one) but with no injuries sustained. Patient is diagnosed with increased troponin, vertigo, abnormal CT scan, HTN, dyslipidemia, and Alzheimer's Disease and is admitted for observation and further testing. PMHX: Medical History (Updated 10/18/18 @ 17:53 by Oskar Farfan MD) Alzheimer's dementia (Chronic) Depression (Chronic) Dyslipidemia (Acute) Hypertension (Chronic) Social History/Home Situation: Patient lives with significant other in a private home. They are [place] residents who drive up here every year in July (except for this year) to visit daughter and grandkids. They have their own RV with 3 steps to enter. Patient was independence with all aspects of ADLs and likes to play golf. Current Functional Limitations: Need for contact-guard assist for all transfer and ambulation task performance due to report of dizziness/lightheadedness in standing Equipment Owned/DME: None Subjective: Patient is agreeable to a PT consult and treatment today. He reports continuing to be lightheaded during bed to chair transfers as well as during sit to supine activities that seemed to subside with sitting down and lying down. He reports mild discomfort on the area overlying the proximal half of right sternocleidomastoid muscle with Mills-Hallpike maneuver to the right. He denies headache, chest pain, shortness of breath, and weakness throughout PT evaluation and treatment. Objective: General Observation: Patient seen resting in chair. States he is mildly lightheaded. Telemetry monitoring in place. IV in right UE. Mental Status: Alert and oriented x 4 Pain: Mild discomfort on the proximal half of the right sternocleidomastoid with Eltno-Hallpike maneuver. ROM: Right Upper Extremity: Shoulder Flexion WFL. Shoulder abduction WFL. Elbow flexion WFL. Wrist flexion WFL. Functional opening and closing of hand WFL. Left Upper Extremity: Shoulder Flexion WFL. Shoulder abduction WFL. Elbow flexion WFL. Wrist flexion WFL. Functional opening and closing of hand WFL. Right Lower Extremity: Hip flexion WFL. Hip abduction WFL. Knee flexion WFL. Ankle dorsiflexion WFL. Ankle plantarflexion WFL. Left Lower Extremity: Hip flexion WFL. Hip abduction WFL. Knee flexion WFL. Ankle dorsiflexion WFL. Ankle plantarflexion WFL. Strength: Right Upper Extremity: Shoulder flexors 5/5. Shoulder abductors 5/5. Elbow flexors 5/5. Elbow extensors 5/5. Surgeon Assistant strong. Left Upper Extremity: Shoulder flexors 5/5. Shoulder abductors 5/5. Elbow flexors 5/5. Elbow extensors 5/5. Surgeon Assistant strong. Right Lower Extremity: Hip flexors 5/5. Hip abductors 5/5. Knee flexors 5/5. Knee extensors 5/5. Ankle dorsiflexors 5/5. Ankle plantarflexors 5/5. Left Lower Extremity:Hip flexors 5/5. Hip abductors 5/5. Knee flexors 5/5. Knee extensors 5/5. Ankle dorsiflexors 5/5. Ankle plantarflexors 5/5. Sensation: Intact as to pain and pressure on bilateral lower extremities. Bed Mobility/Transfers: Rolling Independent Supine to sit Independent Sit to supine Independent Sit to stand CGA Stand to sit CGA Bed to chair CGA Chair to bed CGA Gait: Patient was able to tolerate short distance of about 3-5 feet to transfer to bed from chair without an AD with CGA of PT due to earlier complaint of being lightheaded. Balance: Static Sitting: Normal Dynamic Sitting: Normal Static Standing: Good Dynamic Standing: Fair Special Tests: Mobility Limitations Standardized Measure [facility] 6 clicks Basic Mobility Inpatient Short Form: Raw Score: 20 CMS Score: 36% deficit VERTIGO TESTING: Patient reported lightheadedness with vertebral artery testing on B sides but no nystagmus, diplopia, and drop attack exhibited; there were also no complaint of nausea nor vomitting. Vestibuloocular reflex intact with no lightheadedness nor dizziness reported during all head movements. The Elton-Hallpike maneuver produced brisk horizontal nystagmus for about 5 seconds when head was turned to the right accompanied by increase in complaints of lightheadedness. Patient also complained of more lightheadedness with Mills-Hallpike whne done on the left side. Sandeep maneuver was first done on the left side and then on the right with patient reporting no increase nor reduction in lightheadedenss on either side. 4-Stage balance test: Patient is unable to perform semi-tandem, full tandem, and one-legged stance on either legs. Informed Consent/Education: Patient instructed in purpose of PT consult and plan of care. Assessment: Patient presents with clinical signs and symptoms consistent with current/admitting diagnoses that have resulted to mobility limitations, gait instability, and impairment of motor control as demonstrated by the following impairment level findings: 1. Lightheadedness 2. Impaired standing balance 3. Impaired activity tolerance Impairments are contributing to the following functional limitations: 1. Inability to safely ambulate without assistive device and physical assistance 2. Increase completion time for mobility ADL performance 3. Increased fall risk 4. Inability to negotiate steps alone safely Patient is assessed as a [address]26[address] moderate complexity based on the following: History: Patient is diagnosed with increased troponin, vertigo, abnormal CT scan, HTN, dyslipidemia, and Alzheimer's Disease and is admitted for observation and further testing. Examination: Demonstrable impairment in balancemobility level with underlying impairments and functional limitations as documented above Presentation:Evolving Decision Makin moderate complexity Goals: Goals X1 week 1. Stand-Sit independent 2. Bed-Chair independent 3. Chair-Bed independent 4. Independent gait on level surface with use of least restrictive device for at least 300 feet without report of pain nor dyspnea 5. Independent stair negotiation while holding onto bilateral rails for at least 10 steps without report of pain nor dyspnea 6. Independent with home exercise program 7. Normal static and dynamic standing balance/tolerance Plan of Care/Treatment Plan: 1-2x/day, 7 days/week x 1 week. Plan of care has been reviewed with the MATERIALS ASSISTANT providing the service under Physical Therapy direction. Initiate Physical Therapy intervention for strengthening, bed mobility, transfers, gait, stairs, balance training, use of assistive device. DISCHARGE RECOMMENDATIONS: Home with least restrictive assistive ambulatory device. Patient may need a SC for increased stability with ambulation task. TREATMENT CODE/TIME:76297 x 30 minutes, 68718 x 42 minutes beginning at 9:24 AM. Thank you very much for this referral. Rachelle Saucedo PT, DPT, CLT [facility]
[2018-10-19] MEDS: Regadenoson 0.4 MG/5 ML SYR IVP (12:59)
--- NOTE | 2018-10-19 13:19 | DI.MRI_ITS ---
SYMPTOMS/DIAGNOSIS: VERTIGO/DIZZINESS, ? POSTERIOR CIRCULATION CEREBROVASCULAR ACCIDENT MRI OF THE BRAIN: Comparison is made with noncontrast head CT performed the previous day. T2 sagittal, T1, T2, FLAIR, diffusion and gradient-echo axial sequences were performed. There is mild to moderate atrophy. There are multiple small high signal lesions in the white matter, likely representing sequelae of microvascular disease. No acute infarct, hemorrhage or mass is seen. The ventricles are normal in size. IMPRESSION: Atrophy and white matter changes of small vessel disease. No acute abnormality. MRA OF THE BRAIN: A 3D [id number] study was performed. There is some calcification and atherosclerotic changes in the distal internal carotid arteries, but no significant stenosis. There is no evidence of dissection. There is no evidence of an aneurysm. IMPRESSION: Atherosclerotic changes of the distal internal carotid arteries. No evidence of vascular occlusion or significant stenosis.
--- NOTE | 2018-10-19 15:25 | NT_ITS ---
Date of service: 10/19/18 Time of Service: 02:59
--- NOTE | 2018-10-19 15:25 | PT.INNT ---
Date of service: 10/19/18 Time of Service: 02:59
--- NOTE | 2018-10-19 15:28 | PT.INTREAT ---
Date of service: 10/19/18 Time of Service: 02:59 PT Notes Inpatient Physical Therapy Treatment Note [facility] Date: 10/20/2018 PRECAUTIONS:Fall. Dizziness. Standard. SUBJECTIVE: I want to go home, I am so wiped out right now with all thse tests they did to me today. I am not dizzy anymore.My neck does not hurt anymore. OBJECTIVE: PAIN: 0/10 BED MOBILITY/TRANSFERS Rolling L/R: Independent Supine-sit: Independent Sit-supine: Independent Sit-stand: Independent Stand-sit: Independent Bed-Chair: Independent Chair-bed: Independent GAIT Assistive Device: No AD Weight bearing: FWB Assist: SBA Distance: 150 feet Deviation: Unnremarkable ASSESSMENT: Patient did not complain of dizziness for this second session and is very happy that he has finally eaten a meal. Sandeep is maneuver deferred due to absence of lightheadedness nor dizziness. PLAN: Will reassess Karen-Hallpike tomorrow morning and address symptoms as needed. TREATMENT CODE/TIME: 03969 x 27 minutes beginning at 2:59 PM.
--- NOTE | 2018-10-19 16:01 | CHAPLAIN ---
Federico was out of the room when I visited with Sharmaine. She told me that they have a camper at a campground in [place] for the summer while visiting their daughter and her family, who live here. While here, they are attending the [employer], and Sharmaine said restorationist is aware they are here.
--- NOTE | 2018-10-19 18:16 | W.PM.PROGNOT ---
Date of Service Date of service: 10/19/18 Time of Service: 18:17 Assessment and Plan (1) Elevated troponin: Current visit: Yes Status: Acute Minimally elevated troponin, asymptomatic, and without acute ECG changes. As BNP was elevated an ECHO was checked confirming a new diagnosis of CHF with wall motion abnormality (moderate hypokinesis of the apical myocardium), and Stress suggested small area of ischemia in the distribution of the RCA. Although doubt acute ACS, patient may have had silent [place] in the past. Neither Mr. Pope nor his recall any time during which he may have had any symptoms of Chest pressure or discomfort, palpitations, heart burn, Upper Extremity/neck pain or palpitations, overt faigue, nausea, vomiting, or diaphoresis. She reports that he has felt more 'fatigue' over the last 1-2 years, and attributes this to his underlying dementia. - For now continue aspirin, initiated high potency statin and low dose BB, and prn NTG (although asymptomatic). Already on BRAULIO-I as a home medication. Discussed case in detail with cardiology - given findings recommendations are for diagnostic catheterization, and given that patient is asymptomatic and this was likely not an acute event advised for elective outpatient procedure. Will discuss with family in detail, especially given that Mr. Pope is from [place], and will attempt to coordinate his care locally. Will also repeat troponin in the morning. (2) Vertigo: Current visit: Yes Status: Acute Reported + Elton-Hallpike by ED evaluation, with improvement following stone repositioning maneuvers. - CT Head / MRI brain negative. - Ensure ambulation with assistance while hospitalized. (3) Abnormal CT scan, chest: Current visit: Yes Status: Acute Evidence of small basilar infiltrates vs. atelectasis, with small pleural and pericardial effusions. - No evidence of cough or dyspnea, lack of leukocytosis, no fever, and Procalcitonin <0.1. Doubt infectious - hold off antibiotic therapy. (4) Hypertension: Current visit: Yes Status: Chronic Continue combination BRAULIO-I/Thiazide, and initiated low dose BB. (5) Dyslipidemia: Current visit: Yes Status: Acute Start Atorvastatin and hold Pravastatin. (6) Alzheimer's dementia: Current visit: Yes Status: Chronic Reported mild dementia - although patient is oriented X3 at time of admission. Continue Donepezil. (7) DVT prophylaxis: Current visit: Yes Status: Acute SC Lovenox. Subjective Interval history since last seen: Very pleasant 78 year old man with a prior history of HTN and dyslipidemia, being admitted from [facility] Emergency Department with findings of elevated BNP and troponin. Mr. Pope has a past Medical History significant for HTN, dyslipidemia, Depression, and mild Dementia. He is a full-time [place] resident, here locally to visit his daughter and grandchildren. The patient reported intermittent 'dizziness', initially attibuting this to his allergies since coming to [place] last month. He described this dizziness as sensation of the environment spinning around him - this does not appear to have a precipitating factor. He reportedly had an episode 2 days prior to admission while golfing, leading to an ED visit at [facility], where his work-up was essentially benign (troponin of 0.05). Since his discharge he reported 2 further episodes on the day prior to his presentation here, and 2 more occuring on the day of admission, the last of which was at confucianism and led to his presentation to the ED. According to the Emergency Department provider his Elton-Hallpike was positive, and the patient's symptoms improved after stone reposition maneuvering. However, routine labs returned with a troponin of 0.2, rechecked at 0.22, a BNP of 4715, and a DDimer of 784. Subsequent EKG was non-ischemic, CT head negative, and CT of the chest showed bibasilar infiltrates vs. atelectasis. He was referred for admission for further evaluation and treatment. Following admission the patient's symptoms of vertigo were reproduced by Physical Therapy while performing the Elton-Hallpike Maneuver, and he has had the Sandeep Maneuver performed twice and now remains asymptomatic. MRI of the brain was negative for any acute pathology. His ECHO however returned with a mild decreased in ejection fraction and note of abnormal wall motion, and Nuclear stress was interpreted as positive for a small area of paritally reversible defect. The patient's troponin has remained minimally elevated but flat, but he remains completely asymptomatic. No other events reported. Exam Narrative Exam Narrative: General: Patient appears comfortable, AAOX3 at time of exam, NAD Neck: Supple CV: Regular, nontachycardic, S1S2, No rubs, murmurs, or gallops. Pulmonary: Clear to auscultation bilaterally, no crackles, wheezing, or rhonchi Abdomen: + Bowel Sounds, soft, nontender, nondistended Vascular: Mild b/l lower extremity edema Psych: Normal mood and affect. Objective Objective Clinical Data: Abnormal lab results 10/18/18 10/19/18 10/19/18 Range/Units 18:10 06:16 06:16 MPV 11.7 H (8.0-11.0) fL Absolute Lymphocytes 1.08 L (1.2-3.4) k/cumm Absolute Monocytes 0.73 H (0.11-0.7) k/cumm Glucose 121 H (70-100) mg/dL Troponin I 0.21 H* 0.21 H* (0.00-0.06) ng/mL Vital Signs Temperature 37.1 C 10/19/18 16:53 Temperature Source Tympanic 10/19/18 16:53 Pulse 73 10/19/18 16:53 Pulse Rhythm Regular 10/19/18 16:44 Pulse 76 10/19/18 14:01 Respiratory Rate 18 10/19/18 16:53 Respiratory Effort 10/19/18 16:44 Respiratory Depth Normal 10/19/18 16:44 Respiratory Pattern Normal 10/19/18 16:44 Blood Pressure 145/75 H 10/19/18 16:53 Blood Pressure Mean 87 10/19/18 14:01 Blood Pressure Position Supine 10/18/18 18:27 Pulse Oximetry 96 10/19/18 16:53 Oxygen Delivery Method Room Air 10/19/18 16:53 Oxygen Flow Rate 0 10/19/18 16:53 Pain Level 0 10/19/18 16:53 Intake & Output 10/18/18 10/19/18 10/19/18 23:59 11:59 23:59 Intake Total 1400 / 1400 300 / 990 690 / 990 Output Total 700 / 825 800 / 950 150 / 950 Balance 700 / 575 -500 / 40 540 / 40 Weight 84 kg 83.2 kg Intake: IV 1000 / 1000 Oral 400 / 400 300 / 990 690 / 990 Output: Urine 700 / 825 800 / 950 150 / 950 Other: Urine Color Yellow Straw Straw Urine Appearance Clear Clear Clear Urine Odor Normal None Normal Comment mixed with BM Mixed with stool. Stool Size Moderate Moderate Small Stool Characteristics Soft Soft Soft Formed Brown Brown Voiding Methods Bedside Commode Urinal Bedside Commode Urinal Laboratory Results WBC 7.98 k/cumm (4.4-10.8) 10/19/18 06:16 RBC 4.67 m/cumm (4.50-6.00) 10/19/18 06:16 Hgb 14.3 g/dL (13.5-17.5) 10/19/18 06:16 Hct 42.9 % (40.0-50.0) 10/19/18 06:16 MCV 91.9 fL (80-95) 10/19/18 06:16 MCH 30.6 pg (27.0-33.0) 10/19/18 06:16 MCHC 33.3 g/dL (32.0-36.0) 10/19/18 06:16 RDW 13.4 % (11.8-14.1) 10/19/18 06:16 Plt Count 155 x1000/uL (130-400) 10/19/18 06:16 MPV 11.7 fL (8.0-11.0) H 10/19/18 06:16 Immature Gran % 0.3 10/19/18 06:16 72.8 10/19/18 06:16 13.5 10/19/18 06:16 9.1 10/19/18 06:16 3.9 10/19/18 06:16 0.4 10/19/18 06:16 Absolute Neutrophils 5.81 k/cumm (1.2-6.7) 10/19/18 06:16 Absolute Lymphocytes 1.08 k/cumm (1.2-3.4) L 10/19/18 06:16 Absolute Monocytes 0.73 k/cumm (0.11-0.7) H 10/19/18 06:16 Absolute Eosinophils 0.31 k/cumm (0.0-0.7) 10/19/18 06:16 Absolute Basophils 0.03 k/cumm (0.0-0.2) 10/19/18 06:16 784 ng/mlFEU (<500) H 10/18/18 10:55 Sodium 142 mmol/L (136-145) 10/19/18 06:16 Potassium 3.8 mmol/L (3.5-5.1) 10/19/18 06:16 Chloride 106 mmol/L (98-107) 10/19/18 06:16 Carbon Dioxide 27.0 mmol/L (21.0-32.0) 10/19/18 06:16 9.0 mmol/L (3-11) 10/19/18 06:16 BUN 13 mg/dL (7-18) 10/19/18 06:16 1.01 mg/dL (0.70-1.30) 10/19/18 06:16 >= 60.00 (mL/min/1.73m2) 10/19/18 06:16 Glucose 121 mg/dL (70-100) H 10/19/18 06:16 Calcium 9.0 mg/dL (8.5-10.1) 10/19/18 06:16 Magnesium 2.1 mg/dL (1.8-2.4) 10/19/18 06:16 0.6 mg/dL (0.2-1.0) 10/18/18 10:55 AST 21 U/L (15-37) 10/18/18 10:55 ALT 25 U/L (12-78) 10/18/18 10:55 76 U/L (46-116) 10/18/18 10:55 0.21 ng/mL (0.00-0.06) H* 10/19/18 06:16 NT-Pro-B Natriuret Pep 4715 pg/mL (-299) H 10/18/18 10:55 6.7 g/dL (6.4-8.2) 10/18/18 10:55 3.1 g/dL (3.4-5.0) L 10/18/18 10:55 < 0.1 ng/mL 10/19/18 06:16 Yellow (Yellow) 10/18/18 10:55 Clear (Clear) 10/18/18 10:55 7.5 (5-8) 10/18/18 10:55 Ur Specific Mallie 1.015 (1.005-1.025) 10/18/18 10:55 Negative mg/dL (Negative) 10/18/18 10:55 Negative mg/dL (Negative) 10/18/18 10:55 Negative (Negative) 10/18/18 10:55 Negative (Negative) 10/18/18 10:55 Negative (Negative) 10/18/18 10:55 0.2 EU/dL (Up TO 0.2) 10/18/18 10:55 Ur Leukocyte Esterase Negative (Negative) 10/18/18 10:55 Negative mg/dL (Negative) 10/18/18 10:55 Objective Narrative Objective Narrative: Exam(s) a MRI:MR angio brain wo a MRI:MR brain wo SYMPTOMS/DIAGNOSIS: VERTIGO/DIZZINESS, ? POSTERIOR CIRCULATION CEREBROVASCULAR ACCIDENT MRI OF THE BRAIN: Comparison is made with noncontrast head CT performed the previous day. T2 sagittal, T1, T2, FLAIR, diffusion and gradient-echo axial sequences were performed. There is mild to moderate atrophy. There are multiple small high signal lesions in the white matter, likely representing sequelae of microvascular disease. No acute infarct, hemorrhage or mass is seen. The ventricles are normal in size. IMPRESSION: Atrophy and white matter changes of small vessel disease. No acute abnormality. MRA OF THE BRAIN: A 3D [id number] study was performed. There is some calcification and atherosclerotic changes in the distal internal carotid arteries, but no significant stenosis. There is no evidence of dissection. There is no evidence of an aneurysm. IMPRESSION: Atherosclerotic changes of the distal internal carotid arteries. No evidence of vascular occlusion or significant stenosis. Exam(s) a US:US echocardiogram Date of study: 10/19/2018 Transthoracic Echocardiography M-mode, complete 2D, complete spectral Doppler, and color Doppler *STUDY CONCLUSIONS* Summary: 1. Left ventricle: The cavity size was normal. The estimated ejection fraction was 45%. Diffuse mild hypokinesis. Moderate hypokinesis of the apical myocardium. Findings consistent with diastolic dysfunction. Doppler parameters are consistent with high ventricular filling pressure. 2. Aortic valve: There was moderate regurgitation. 3. Mitral valve: There was mild regurgitation. 4. Left atrium: The atrium was mildly dilated. 5. Right ventricle: The cavity size was normal. Wall thickness was normal. Systolic function was normal. 6. Right atrium: The atrium was mildly dilated. 7. Atrial septum: No defect or patent foramen ovale was identified. 8. Pulmonary arteries: Pulmonary systolic pressure was in the range of 30mm Hg to 40mm Hg. 9. Inferior vena cava: The vessel was patent and normal in size. The respirophasic diameter changes were in the normal range (greater than or equal to 50%), consistent with normal central venous pressure.
[2018-10-19] MEDS: Atorvastatin 40 MG TAB PO (19:44)
[2018-10-20] VITALS: PULSE 62
[2018-10-20 04:06] VITALS: BP 139/73; PULSE 78; RESP 16; TEMP 36.8; O2SAT 99
[2018-10-20 07:08] VITALS: PULSE 60
[2018-10-20 07:09] LABS: Abs Immature Grans 0.02 k/cumm (0.0-0.09); Absolute Basophil Count 0.02 k/cumm (0.0-0.2); Absolute Eosinophil Count 0.22 k/cumm (0.0-0.7); Absolute Lymphocyte Count 1.05 k/cumm (1.2-3.4); Absolute Monocyte Count 0.75 k/cumm (0.11-0.7); Basophils % 0.2; Eosinophils % 2.4; HGB 14.7 g/dL (13.5-17.5); Immature Grans % 0.2; Lymphocytes % 11.2; Mean Corp. HGB Concentration 33.4 g/dL (32.0-36.0); Mean Corpuscular Hemoglobin 30.3 pg (27.0-33.0); Mean Corpuscular Volume 90.7 fL (80-95); Mean Platelet Volume 11.7 fL (8.0-11.0); Platelet Count 170 x1000/uL (130-400); RBC 4.85 m/cumm (4.50-6.00); RBC Distribution Width 13.3 % (11.8-14.1); White Blood Cell Count 9.36 k/cumm (4.4-10.8)
[2018-10-20 07:30] VITALS: BP 150/75; PULSE 74; RESP 16; TEMP 36.8; O2SAT 97
[2018-10-20 07:35] LABS: BUN 16 mg/dL (7-18); CREATININE 1.07 mg/dL (0.70-1.30); Calcium 8.8 mg/dL (8.5-10.1); Chloride 104 mmol/L (98-107); Glucose 132 mg/dL (70-100); Potassium 3.7 mmol/L (3.5-5.1); Sodium 139 mmol/L (136-145)
--- NOTE | 2018-10-20 07:35 | HOME_ITS ---
Home Ventilator Equipment Home care company Reason: Obstructive Sleep Apnea Make: ResMed Model: AirSense 10 Mask type: Nasal pillows Mask size: Medium Mode: CPAP Settings: Oxygen bleed in (lpm): Condition: Good Date last checked: Year of last sleep study: Compliance Daily Comments:
[2018-10-20] MEDS: Lisinopril 10 MG TAB PO (07:37)
[2018-10-20] MEDS: Enoxaparin 40 MG/0.4 ML SYR SC (07:37)
[2018-10-20] MEDS: Aspirin E.C. 81 MG TABEC PO (07:38)
[2018-10-20] MEDS: hydroCHLOROthiazide 12.5 MG TAB PO (07:38)
[2018-10-20] MEDS: Donepezil 5 MG TAB PO (07:38)
[2018-10-20] MEDS: Metoprolol 25 MG TAB PO (07:38)
[2018-10-20] MEDS: Citalopram 10 MG TAB 5 MG PO (07:38)
[2018-10-20] MEDS: Normal Saline Flush 10 ML SYR IVP (07:38)
[2018-10-20] MEDS: POTASSIUM CHLORIDE 20 MEQ, POTASSIUM CHLORIDE 10 MEQ 30 MEQ PO (10:29)
[2018-10-20 11:43] VITALS: BP 131/71; PULSE 68; RESP 16; TEMP 36.7; O2SAT 97
--- NOTE | 2018-10-20 13:42 | DSE_ITS ---
Date of service: 10/20/18 Time of Service: 13:42 DS: Diagnosis Discharge Diagnosis (1) Elevated troponin: Status: Acute (2) Vertigo: Status: Acute (3) Abnormal CT scan, chest: Status: Acute (4) Hypertension: Status: Chronic (5) Dyslipidemia: Status: Acute (6) Alzheimer's dementia: Status: Chronic Discharge Plan Disposition Patient Disposition: HOME Condition: Stable Discharge Details Chief Complaint: Dizzy/Sync Clinical Impression: Benign paroxysmal positional vertigo of right ear, Elevated troponin I level Reason For Visit: ELEVATED TROPONIN Admit Date/Time: 10/18/18 16:00 Admit Provider: Oskar Farfan Attending Provider: Oskar Farfan Primary Care Provider: Zoie Hyman ED Provider: Trent Mendosa Hospital Course Hospital Course: Chief Complaint: Vertigo HPI: Very pleasant 78 year old man with a prior history of HTN and dyslipidemia, being admitted from [facility] Emergency Department with findings of elevated BNP and troponin. Mr. Pope has a past Medical History significant for HTN, dyslipidemia, Depression, and mild Dementia. He is a full-time [place] resident, here locally to visit his daughter and grandchildren. The patient reported intermittent 'dizziness', initially attibuting this to his allergies since coming to [place] last month. He described this dizziness as sensation of the environment spinning around him - this does not appear to have a precipitating factor. He reportedly had an episode 2 days prior to admission while golfing, leading to an ED visit at [facility], where his work-up was essentially benign (troponin of 0.05). Since his discharge he reported 2 further episodes on the day prior to his presentation here, and 2 more occuring on the day of admission, the last of which was at anglican and led to his presentation to the ED. According to the Emergency Department provider his Elton-Hallpike was positive, and the patient's symptoms improved after stone reposition maneuvering. However, routine labs returned with a troponin of 0.2, rechecked at 0.22, a BNP of 4715, and a DDimer of 784. Subsequent EKG was non-ischemic, CT head negative, and CT of the chest showed bibasilar infiltrates vs. atelectasis. He was referred for admission for further evaluation and treatment. Following admission the patient's symptoms of vertigo were reproduced by Physical Therapy while performing the Elton-Hallpike Maneuver, and he had the Sandeep Maneuver performed twice and now remains asymptomatic. MRI of the brain was negative for any acute pathology. His ECHO however returned with a mild decreased in ejection fraction and note of abnormal wall motion, and Nuclear stress was interpreted as positive for a small area of paritally reversible defect. The patient's troponin has remained minimally elevated but flat, again unchanged this morning at 0.2, and he remains completely asymptomatic. Mr. Pope has no complaints this morning. No other events reported. Hospital Course: (1) Elevated troponin: Minimally elevated troponin, asymptomatic, and without acute ECG changes. Troponin remained at 0.2 - 0.22 between the afternoon of 10/18 and morning of 10/20. As BNP was elevated an ECHO was obtained confirming a new diagnosis of CHF with wall motion abnormality (moderate hypokinesis of the apical myocardium), and Stress suggested small area of ischemia in the distribution of the RCA. Although doubt acute ACS, patient may have had silent [place] in the past. Neither Mr. Pope nor his recall any time during which he may have had any symptoms of Chest pressure or discomfort, palpitations, heart burn, Upper Extremity/neck pain, nausea, vomiting, dyspnea, or diaphoresis. She reports that he has felt more 'fatigue' over the last 1-2 years, and attributes this to his underlying dementia. - For now continue aspirin, initiated low dose BB, and prn NTG (although asymptomatic). Pravastatin was changed to Atorvastatin. Already on BRAULIO-I as a home medication. Discussed case in detail with cardiology - given findings recommendations are for diagnostic catheterization, and given that patient is asymptomatic and this was likely not an acute event advised for elective outpatient procedure. Discussed with in detail, with plans for follow-up at [facility] [place], for evaluation of a diagnostic and potentially therapeutic Heart Catheterization. (2) Vertigo: Reported + Elton-Hallpike by ED evaluation, with improvement following stone repositioning maneuvers. - CT Head / MRI brain negative. - Remains asymptomatic. (3) Abnormal CT scan, chest: Evidence of small basilar infiltrates vs. atelectasis, with small pleural and pericardial effusions. - No evidence of cough or dyspnea, lack of leukocytosis, no fever, and Procalcitonin <0.1. Doubt infectious - hold off antibiotic therapy. (4) Hypertension: Continue combination BRAULIO-I/Thiazide, and initiated low dose BB. SBP mostly in the 120-140's, with HR 60-70's. (5) Dyslipidemia: Continue Atorvastatin and hold Pravastatin. (6) Alzheimer's dementia: Reported mild dementia - although patient is oriented X3 at time of admission. Continue Donepezil. (7) DVT prophylaxis: Was maintained on SC Lovenox. Home Meds and New Rx's Prescriptions: New atorvastatin [Lipitor] 40 mg Tablet 40 mg PO QPM Qty: 30 RF: 0 nitroglycerin [Nitrostat] 0.4 mg Tablet, Sublingual 0.4 mg sublingual Q5 MIN PRN X3 PRNQty: 9 RF: 0 metoprolol tartrate 25 mg Tablet 25 mg PO BID Qty: 60 RF: 0 Continued donepezil 5 mg Tablet 5 mg PO DAILY RF: 0 citalopram 10 mg Tablet 10 mg PO DAILY RF: 0 aspirin [Aspir-81] 81 mg Tablet,Delayed Release (Dr/Ec) 81 mg PO DAILY RF: 0 lisinopril-hydrochlorothiazide 10-12.5 mg Tablet 1 tab PO DAILY RF: 0 multivitamin Capsule 1 cap PO DAILY RF: 0 loratadine 10 mg Capsule 10 mg PO HS RF: 0 Discontinued pravastatin 20 mg Tablet 40 mg PO DAILY RF: 0 Discharge Instructions Instructions: Heart Failure (DC), Heart Failure (GEN), Benign Paroxysmal Positional Vertigo (DC), Benign Paroxysmal Positional Vertigo (GEN) Activity:: No strenuous activity Equipment/Supplies:: No Equipment Needed Diet:: Low Sodium Discharge Orders Discharge Orders: Discharge Order (Routine); Ordered 10/20/18 Ordered By: Oskar Farfan DS: Data Vitals/I&O Vitals and I&O: Vital Signs Temperature 36.7 C 10/20/18 11:43 Temperature Source Temporal Artery Scan 10/20/18 11:43 Pulse 68 10/20/18 11:43 Pulse Rhythm Regular 10/20/18 07:30 Pulse 76 10/19/18 14:01 Respiratory Rate 16 10/20/18 11:43 Respiratory Effort 10/20/18 07:30 Respiratory Depth Normal 10/20/18 07:30 Respiratory Pattern Normal 10/20/18 07:30 Blood Pressure 131/71 10/20/18 11:43 Blood Pressure Mean 87 10/19/18 14:01 Blood Pressure Position Supine 10/18/18 18:27 Pulse Oximetry 97 10/20/18 11:43 Oxygen Delivery Method Room Air 10/20/18 11:43 Oxygen Flow Rate 0 10/20/18 11:43 Pain Level 0 10/20/18 11:43 Intake & Output 10/19/18 10/20/18 10/20/18 23:59 11:59 23:59 Intake Total 930 / 1230 250 / 490 240 / 490 Output Total 150 / 950 Balance 780 / 280 250 / 490 240 / 490 Weight 83 kg Intake: Oral 930 / 1230 250 / 490 240 / 490 Output: Urine 150 / 950 Other: Urine Color Pale Yellow Urine Appearance Clear Urine Odor Normal Comment per patient verbalization Stool Size Small Stool Characteristics Soft Brown Voiding Methods Toilet Completed studies during hospitalization [Text1]: Exam(s) 10/18/[address]:CT head wo SYMPTOMS/DIAGNOSIS: DIZZINESS NONCONTRAST HEAD CT: There is mild to moderate atrophy. There are white matter changes consistent with small vessel disease. The ventricles are normal in size. No acute infarct, hemorrhage or mass is seen. There is no evidence of skull fracture. There is minimal sinus disease. IMPRESSION: No acute abnormality. Exam(s) 10/18/[address]:CT chest PE CTA SYMPTOMS/DIAGNOSIS: ELEVATED D-DIMER CHEST CT FOR PULMONARY EMBOLISM: CT angiography was performed with multi slice acquisition and multi planar and 3D reconstruction. There is no evidence of pulmonary emboli or aortic dissection. There is bibasilar atelectasis versus infiltrates. There are tiny bilateral pleural effusions and a small pericardial effusion. There are mildly enlarged hilar and mediastinal lymph nodes. IMPRESSION: No evidence of pulmonary emboli. Question of small basilar infiltrates versus atelectasis. Small pleural and pericardial effusions. Exam(s) a US:US echocardiogram Date of study: 10/19/2018 Transthoracic Echocardiography M-mode, complete 2D, complete spectral Doppler, and color Doppler *STUDY CONCLUSIONS* Summary: 1. Left ventricle: The cavity size was normal. The estimated ejection fraction was 45%. Diffuse mild hypokinesis. Moderate hypokinesis of the apical myocardium. Findings consistent with diastolic dysfunction. Doppler parameters are consistent with high ventricular filling pressure. 2. Aortic valve: There was moderate regurgitation. 3. Mitral valve: There was mild regurgitation. 4. Left atrium: The atrium was mildly dilated. 5. Right ventricle: The cavity size was normal. Wall thickness was normal. Systolic function was normal. 6. Right atrium: The atrium was mildly dilated. 7. Atrial septum: No defect or patent foramen ovale was identified. 8. Pulmonary arteries: Pulmonary systolic pressure was in the range of 30mm Hg to 40mm Hg. 9. Inferior vena cava: The vessel was patent and normal in size. The respirophasic diameter changes were in the normal range (greater than or equal to 50%), consistent with normal central venous pressure. adalgisa santoyo (s) NM:MANNY MPI rest & stress grp Myocardial Perfusion Imaging - SPECT [facility] Date of study: 10/19/2018 (Report amended ) *PATIENT PRESENTATION* Height: 182.9cm (72in) Blood Pressure: Weight: 84.1kg (185lb) BSA: 2.07m^2 Referring physician: Jenny Hagen Ordering physician: Oskar Farfan Impressions: - Abnormal study after maximal exercise. - Abnormal contraction consistent with cardiomyopathy. Summary: 1. Myocardial perfusion imaging: There is no transient ischemic dilation. There is a small sized, mildly intense, partially reversible defect involving the basal inferior wall(s). This suggests small ischemia in the distribution of the right coronary artery. Overall ischemia: small. 2. The calculated left ventricular ejection fraction after stress: 39%. Diffuse left ventricular regional motion abnormalities. There is moderate hypokinesis involving the septal wall(s) of the left ventricle. 3. Stress ECG conclusions: Abraham treadmill score: 9. This score predicts a low risk of cardiac events. Exam(s) 10/19/2018 a MRI:MR angio brain wo a MRI:MR brain wo SYMPTOMS/DIAGNOSIS: VERTIGO/DIZZINESS, ? POSTERIOR CIRCULATION CEREBROVASCULAR ACCIDENT MRI OF THE BRAIN: Comparison is made with noncontrast head CT performed the previous day. T2 sagittal, T1, T2, FLAIR, diffusion and gradient-echo axial sequences were performed. There is mild to moderate atrophy. There are multiple small high signal lesions in the white matter, likely representing sequelae of microvascular disease. No acute infarct, hemorrhage or mass is seen. The ventricles are normal in size. IMPRESSION: Atrophy and white matter changes of small vessel disease. No acute abnormality. MRA OF THE BRAIN: A 3D [id number] study was performed. There is some calcification and atherosclerotic changes in the distal internal carotid arteries, but no significant stenosis. There is no evidence of dissection. There is no evidence of an aneurysm. IMPRESSION: Atherosclerotic changes of the distal internal carotid arteries. No evidence of vascular occlusion or significant stenosis. Labs on day of discharge: Labs from last 24 hours 10/20/18 10/20/18 06:25 06:25 WBC 9.36 RBC 4.85 Hgb 14.7 Hct 44.0 MCV 90.7 MCH 30.3 MCHC 33.4 RDW 13.3 Plt Count 170 MPV 11.7 H Immature Gran % 0.2 Neutrophils % 78.0 Lymphocytes % 11.2 Monocytes % 8.0 Eosinophils % 2.4 Basophils % 0.2 Absolute Neutrophils 7.30 H Absolute Lymphocytes 1.05 L Absolute Monocytes 0.75 H Absolute Eosinophils 0.22 Absolute Basophils 0.02 Sodium 139 Potassium 3.7 Chloride 104 Carbon Dioxide 26.0 Anion Gap 9.0 BUN 16 Creatinine 1.07 Estimated GFR/1.73 m2 >= 60.00 Glucose 132 H Calcium 8.8 Magnesium 2.0 Troponin I 0.20 H* PFSH Medical History Alzheimer's dementia (Chronic) Depression (Chronic) Dyslipidemia (Acute) Hypertension (Chronic) Social History Smoking/Tobacco Use Status: Never Alcohol Intake: current Alcohol Intake frequency: holidays/special occasions only Drug use: Never Substance use type: does not use Do you feel safe at home: Yes Additional Social history: Patient is a . He is with children. No history of EtOH or Tobacco use.
[2018-10-20 15:15] VITALS: PULSE 80
--- NOTE | 2018-10-20 15:24 | CMDISCH_ITS ---
- If Service Date Differs Date of service: 10/20/18 Time of Service: 15:24 LACE Index Scoring Tool - Questions: Length of Stay (in days): 2 Acuity (Admit via E.D.?): Yes Comorbidities: Dementia E.D. Visits: 1 - Answers: Total Score: 9 Risk of Readmission: Low Risk Care Management Discharge Reason for Hospitalization: Elevated troponin Discharge Plan: Federico will be discharged home without any additional services. He will follow up with cardiology at [facility] and with his PCP when he returns to [place]. He will transport via private vehicle with [place]. Patient/Family Education Needs: Discharge plan, limitations, follow up plan, Ask Me Three.
--- NOTE | 2018-10-22 12:43 | INDS_ITS ---
Date of service: 10/22/18 Time of Service: 12:43 PT Notes Inpatient Physical Therapy Discharge Summary Dates: 10/22/2018 Dates of Service: 10/19/2018 only Referring Doctor: Oskar Farfan MD PT Orders: PT CONSULT: Vertigo, reported +Birmingham-hallpike. Please evaluate and perform Sandeep maneuver if deemed appropriate Precautions: Fall. Standard. Dizziness. Patient Profile/Admitting Diagnosis: Patient is a 78-year-old male with past medical history significant for Alzheimer's Disease, dyslipidemia, and hypertension who presented [facility] ED on 10/16/2018 due to a fall resulting from a dizziness episode. On 10/18/2018, patient complained of the same symptom and was sent to [facility] ED. Significant other reported that patient have been reporting dizziness since two months ago and that patient has had two falls (including this last one) but with no injuries sustained. Patient is di agnosed with increased troponin, vertigo, abnormal CT scan, HTN, dyslipidemia, and Alzheimer's Disease and is admitted for observation and further testing. PMHX: Medical History (Updated 10/18/18 @ 17:53 by Oskar Farfan MD) Alzheimer's dementia (Chronic) Depression (Chronic) Dyslipidemia (Acute) Hypertension (Chronic) Social History/Home Situation: Patient lives with significant other in a private home. They are [place] residents who drive up here every year in July (except for this year) to visit daughter and grandkids. They have their own RV with 3 steps to enter. Patient was independence with all aspects of ADLs and likes to play golf. Current Functional Limitations: Need for contact-guard assist for all transfer and ambulation task performance due to report of dizziness/lightheadedness in standing Equipment Owned/DME: None Subjective: Patient is agreeable to a PT consult and treatment today. He reports continuing to be lightheaded during bed to chair transfers as well as du ring sit to supine activities that seemed to subside with sitting down and lying down. He reports mild discomfort on the area overlying the proximal half of right sternocleidomastoid muscle with Birmingham-Hallpike maneuver to the right. He denies headache, chest pain, shortness of breath, and weakness throughout PT evaluation and treatment. Objective: General Observation: Patient seen resting in chair. States he is mildly lightheaded. Telemetry monitoring in place. IV in right UE. Mental Status: Alert and oriented x 4 Pain: Mild discomfort on the proximal half of the right sternocleidomastoid with Birmingham-Hallpike maneuver. ROM: Right Upper Extremity: Shoulder Flexion WFL. Shoulder abduction WFL. Elbow flexion WFL. Wrist flexion WFL. Functional opening and closing of hand WFL. Left Upper Extremity: Shoulder Flexion WFL. Shoulder abduction WFL. Elbow flexion WFL. Wrist flexion WFL. Functional opening and closing of hand WFL. Right Lower Extremity: Hip flexion WFL. Hip abduction WFL. Knee flexion WFL. Ankle dorsiflexion WFL. Ankle plantarflexion WFL. Left Lower Extremity: Hip flexion WFL. Hip abduction WFL. Knee flexion WFL. Ankle dorsiflexion WFL. Ankle plantarflexion WFL. Strength: Right Upper Extremity: Shoulder flexors 5/5. Shoulder abductors 5/5. Elbow flexors 5/5. Elbow extensors 5/5. Developmental Psychologist strong. Left Upper Extremity: Shoulder flexors 5/5. Shoulder abductors 5/5. Elbow flexors 5/5. Elbow extensors 5/5. Developmental Psychologist strong. Right Lower Extremity: Hip flexors 5/5. Hip abductors 5/5. Knee flexors 5/5. Knee extensors 5/5. Ankle dorsiflexors 5/5. Ankle plantarflexors 5/5. Left Lower Extremity:Hip flexors 5/5. Hip abductors 5/5. Knee flexors 5/5. Knee extensors 5/5. Ankle dorsiflexors 5/5. Ankle plantarflexors 5/5. Sensation: Intact as to pain and pressure on bilateral lower extremities. Bed Mobility/Transfers: Rolling Independent Supine to sit Independent Sit to supine Independent Sit to stand CGA Stand to sit CGA Bed to chair CGA Chair to bed CGA Gait: Patient was able to tolerate short distance of about 150 feet to transfer to bed from chair without an AD with SBA of PT without any complaints of dizziness, lightheadedness, and nausea. Balance: Static Sitting: Normal Dynamic Sitting: Normal Static Standing: Good Dynamic Standing: Fair Special Tests: Mobility Limitations Standardized Measure [facility] 6 clicks Basic Mobility Inpatient Short Form: Raw Score: 20 CMS Score: 36% deficit 4-Stage balance test: Patient is unable to perform semi-tandem, full tandem, and one-legged stance on either legs. Assessment: Patient presents with clinical signs and symptoms consistent with current/admitting diagnoses that have resulted to mobility limitations, gait instability, and impairment of motor control as demonstrated by the following impairment level findings: 1. Impaired standing balance 2. Impaired activity tolerance Impairments are contributing to the following functional limitations: 1. Increase completion time for mobility ADL performance 2. Increased fall risk 3. Inability to negotiate steps alone safely Patient is assessed as a 58799 moderate complexity based on the following: History: Patient is diagnosed with increased troponin, vertigo, abnormal CT scan, HTN, dyslipidemia, and Alzheimer's Disease and is admitted for observation and further testing. Examination: Demonstrable impairment in balancemobility level with underlying impairments and functional limitations as documented above Presentation:Evolving Decision Makin moderate complexity Goals: Goals X1 week 1. Stand-Sit independent MET 2. Bed-Chair independent MET 3. Chair-Bed independent MET 4. Independent gait on level surface with use of least restrictive device for at least 300 feet without report of pain nor dyspnea MET 5. Independent stair negotiation while holding onto bilateral rails for at least 5 steps without report of pain nor dyspnea MET 6. Independent with home exercise program MET 7. Normal static and dynamic standing balance/tolerance MET DISCHARGE RECOMMENDATIONS: Patient will benefit from home health PT services in order to progress mobility level using least restrictive assistive ambulatory device/using no device, assess home safety, identify additional equipment needs, and establish a functional maintenance program that will increase ability of patient to remain at home. TREATMENT CODE/TIME:NM Thank you very much for this referral. Rachelle Saucedo PT, DPT, CLT [facility]
== END 2018-10-20 15:38 | disposition home or self-care (01) ==
LOC: ER 16:25 → ICU 17:23 → MS 10-19 16:32
PROVIDERS: Admitting Provider Internal Medicine; Emergency Provider Nurse Practitioner Family; Visit Provider Internal Medicine
DX: R74.8 Abnormal levels of other serum enzymes (principal); I11.0 Hypertensive heart disease with heart failure; I50.31 Acute diastolic (congestive) heart failure; R42 Dizziness and giddiness; R79.1 Abnormal coagulation profile; R94.39 Abnormal result of other cardiovascular function study; R91.8 Other nonspecific abnormal finding of lung field; E78.5 Hyperlipidemia, unspecified; G30.9 Alzheimer's disease, unspecified; F02.80 Dementia in other diseases classified elsewhere, unspecified severity, without behavioral disturbance, psychotic disturbance, mood disturbance, and anxiety
CPT/HCPCS: 36415; 70544; 71275; 78452; 80048; 80053; 84145; 93005; 93016; 93018; 93306; 96360; 96361; 97162; 97530; 99217; 99219; 99233; 99285; J1650; 70450; 70551; 81003; 83735; 83880; 84484; 85025; 85379; 93010; 93017; G0378; J2785; J3490